=== PATIENT | female | born 2000 | race Caucasian/White ===

== ENCOUNTER 2023-09-26 11:54 | Emergency (ER) | payer BC, SELFPAY ==
[2023-09-26] VITALS (7 sets, daily range): BP systolic 105–135; BP diastolic 69–85; PULSE 59–78; RESP 16–19; TEMP 36.9; O2SAT 100; BMI 24.5
--- NOTE | 2023-09-26 12:11 | XR_ITS ---
PROCEDURE INFORMATION: Exam: XR Left Ankle Exam date and time: 09/26/2023 12:37 PM Age: 22 years old Clinical indication: Injury or trauma; Fall; Other: Tripped over dumbbell; Additional info: Inversion injury TECHNIQUE: Imaging protocol: Radiologic exam of the left ankle. Views: 3 or more views. COMPARISON: No relevant prior studies available. FINDINGS: Bones/joints: Normal. Soft tissues: Normal. IMPRESSION: No acute findings.
--- NOTE | 2023-09-26 12:11 | XR_ITS ---
PROCEDURE INFORMATION: Exam: XR Left Foot Exam date and time: 09/26/2023 12:37 PM Age: 22 years old Clinical indication: Injury or trauma; Other: Tripped over dumbbell; Additional info: Inversion injury, dorsal bruising TECHNIQUE: Imaging protocol: Radiologic exam of the left foot. Views: 3 or more views. COMPARISON: No relevant prior studies available. FINDINGS: Bones/joints: Spiral minimally displaced 5th metatarsal fracture. Approximate 2 mm separation of the fracture fragments. Soft tissues: Associated soft tissue swelling. IMPRESSION: Spiral minimally displaced 5th metatarsal fracture. Approximate 2 mm separation of the fracture fragments.
--- NOTE | 2023-09-26 12:12 | HMH.EDGENADL ---
Discharge Plan Disposition Chief Complaint: PAIN Prescriptions Prescriptions: No Action omeprazole 40 mg capsule,delayed release(DR/EC) 40 mg PO DAILY Patient Comments: TAKE 1 CAPSULE BY MOUTH ONCE DAILY escitalopram oxalate 5 mg tablet 5 mg PO DAILY Referrals Follow up/Referrals: Destini Castellanos MD [Primary Care Provider] - See instructions Jose Antonio Rausch DO [Staff Physician] - See instructions Activity Restrictions/Add. Instructions Additional Instructions/Restrictions: At this time it was felt you are safe to be discharged home. If new or worsening symptoms please do not hesitate to return the emergency department. Please wear your boot and try and limit bearing weight until you can call and schedule an appointment with Dr. Rausch next week. Clinical Impressions Clinical Impression: Closed fracture of fifth metatarsal bone Discharge ED Provider: Corey Bhakta General Adult HPI General Chief complaint: PAIN Stated complaint: AO 09/25, left foot pain Time Seen by Provider: 09/26/23 12:00 Mode of Arrival: Ambulatory Source of Information: Patient Limitations: No Limitations Description of Symptoms (Recalled from ER Triage Doc. by RN): 22 yo F presents to ED with c/o left foot pain. pt reports she was working out last night and misstepped on a weight. History of Present Illness HPI narrative: Patient is a 22-year-old female with no pertinent past medical history presents emergency department for evaluation of an ankle injury. Patient suffered an inversion injury to her left ankle and foot while doing a dance routine just prior to arrival. No other traumatic injuries at this time. Related Data Home Medications Medication Instructions Recorded Confirmed escitalopram oxalate 5 mg tablet 5 mg PO DAILY 09/26/23 09/26/23 omeprazole 40 mg capsule,delayed 40 mg PO DAILY 09/26/23 09/26/23 release Allergies Allergy/AdvReac Type Severity Reaction Status Date / Time No Known Allergies Allergy Verified 09/26/23 12:04 [facility] Disclaimer: The information contained in this section may have been updated after the patient was seen, as this information can be updated by other users. Social History Smoking Status: Never smoker alcohol intake: never current occupational status: other Travel in the last 8 weeks: None ROS Obtained: Yes Systems reviewed as appropriate & no additional complaints except as documented Physical Exam General General appearance: alert and in no apparent distress Head Head exam: atraumatic and normocephalic Eye Eye exam: Present PERRL Chest Chest inspection: Present normal inspection and symmetric chest wall rise Respiratory Respiratory exam: Absent respiratory distress Cardiovascular Cardiovascular exam: Present regular rate Extremities Exam Extremities exam: Present other (Bruising and slight tenderness along the dorsal aspect of the left foot. Capillary refill preserved in all toes. Palpable dorsal pedal pulse.) Neurological Exam Neurological exam: Present alert Psychiatric Psychiatric exam: Present normal affect Skin Skin exam: Present warm and dry Medical Decision Making Yuan Inquiry Pt receiving controlled substance: No Vital Signs: 09/26/23 12:00 09/26/23 12:15 09/26/23 12:31 Temperature 98.4 F Temperature Source Oral Pulse Rate 67 64 Pulse Rate [Left Radial] 78 Respiratory Rate 19 Blood Pressure 111/69 135/77 Blood Pressure [Right Arm] 130/85 Blood Pressure Mean 83 Blood Pressure Mean [Right Arm] 100 02 Sat by Pulse Oximetry 100 100 100 Oxygen Delivery Method Room Air 09/26/23 12:45 09/26/23 13:00 09/26/23 13:15 Temperature Temperature Source Pulse Rate 61 59 L 65 Pulse Rate [Left Radial] Respiratory Rate Blood Pressure 109/80 L 124/70 105/71 L Blood Pressure [Right Arm] Blood Pressure Mean 89 83 Blood Pressure Mean [Right Arm] 02 Sat by Pulse Oximetry 100 100 100
--- NOTE | 2023-09-26 12:25 | PC.NURSE ---
[facility] at [facility]
--- NOTE | 2023-09-26 12:49 | PC.NURSE ---
[facility] called and was placed on hold they then came back on phone said they would call back bc they were having trouble reachong OR doctor
--- NOTE | 2023-09-26 12:54 | PC.NURSE ---
Pt updated that we are waiting for phone call back from [facility] for consult
--- NOTE | 2023-09-26 13:22 | PC.NURSE ---
Dr. Bhakta speaking with Dr. Brown, ortho, at [facility], [place]
--- NOTE | 2023-09-26 13:32 | PC.NURSE ---
pt placed in tall boot and given crutches with education. No other needs at this time
== END 2023-09-26 13:37 | disposition home or self-care (01) ==
PROVIDERS: Emergency Provider Emergency Medicine; PCP Family Medicine
DX: S92.352A Displaced fracture of fifth metatarsal bone, left foot, initial encounter for closed fracture (principal); X50.1XXA Overexertion from prolonged static or awkward postures, initial encounter
CPT/HCPCS: 73610; 73630; 99283